=== PATIENT | male | born 1935 | race Caucasian/White ===

== ENCOUNTER 2024-03-07 12:23 | Day surgery (SDC) | payer MEDICARE, SELFPAY ==
--- NOTE | 2024-03-07 12:34 | US_ITS ---
[address] [address] Patient Name: RADHA NIXON MRN: [id number] date: 1935 Sex: M Assigned Patient Location: US Current Patient Location: Accession/Order Number: [id number] Exam Date: 03/07/2024 13:00 Report Date: 03/07/2024 14:18 At the request of: NAHID LOPEZ Procedure: US biopsy thyroid EXAMINATION: US biopsy thyroid HISTORY: Left thyroid nodule COMPARISON: No relevant comparison available. TECHNIQUE: After obtaining informed consent, an ultrasound-guided biopsy was performed in the usual sterile manner. FINDINGS: IMAGING: Ultrasound BIOPSY NEEDLE: 2 inch 25-gauge SPECIMEN TYPE, #, LOCATION: 3 fine-needle aspirates 3.9 cm left thyroid nodule MEDICATION: 3 cc 1% buffered lidocaine COMPLICATIONS: None. LABORATORY: Pending molecular studies and pathology OTHER: Negative. US/US biopsy thyroid IMPRESSION: Uneventful ultrasound guided biopsy. The patient was instructed to obtain follow up care and biopsy results from the referring physician. Electronically authenticated by: CHRYSTAL DURAN Date: 03/07/2024 14:18
[2024-03-07 12:35] VITALS: BP 176/75; PULSE 50; O2SAT 96
[2024-03-07] MEDS: LIDOCAINE HCL 10 ML, SODIUM BICARBONATE 1 MEQ INJ (13:10)
--- NOTE | 2024-03-07 14:00 | SUR.PREOP ---
02/28/24 Pt instructed on procedure, date, time, and prep. Pt is allowed to hold Clopidogrel for procedures and instructed to hold it for days prior to biopsy.
== END 2024-03-07 13:45 | disposition home or self-care (01) ==
LOC: US 12:28
PROVIDERS: Radiology Diagnostic Radiology; PCP Family Medicine; Visit Provider Otolaryngology
DX: E04.1 Nontoxic single thyroid nodule (principal)
CPT/HCPCS: 10005; 88173

== ENCOUNTER 2024-06-19 11:00 | Outpatient (OUT) | payer MEDICARE, SELFPAY ==
[2024-06-19 13:05] LABS: Prostate Specific Antigen Dx <0.13 ng/mL (<=4.00)
== END 2024-06-19 11:01 | disposition home or self-care (01) ==
PROVIDERS: PCP Family Medicine; Visit Provider Urology
DX: Z85.46 Personal history of malignant neoplasm of prostate (principal)
CPT/HCPCS: 36415; 84153